=== PATIENT | female | born 1965 | race Two or more races ===

== ENCOUNTER 2017-08-09 07:23 | Outpatient (CLI) | payer OTHER ==
[~2017-08-09] VITALS: Ht 152.4 cm; Wt 70.8 kg
== END 2017-08-09 07:40 | disposition home or self-care (01) ==
LOC: OFIC 805 07:23
DX: H90.42 Sensorineural hearing loss, unilateral, left ear, with unrestricted hearing on the contralateral side (principal); J31.0 Chronic rhinitis; G35 Multiple sclerosis; M79.7 Fibromyalgia

== ENCOUNTER 2020-03-11 14:26 | Emergency (ER) | payer OTHER ==
[~2020-03-11] VITALS: Ht 154.9 cm; Wt 58.5 kg
[2020-03-11] MEDS ORDERED: AMBIEN CR12.5 MG (15:15)
[2020-03-11] MEDS ORDERED: ZANAFLEX2 M1 (15:16)
[2020-03-11] MEDS ORDERED: MAGNESIUM400 MG (15:16)
[2020-03-11] MEDS ORDERED: SINGULAIR10 MG (15:16)
[2020-03-11] MEDS ORDERED: NEURONTIN800 MG (15:16)
[2020-03-11] MEDS ORDERED: METFORMIN HCL500 M3 (15:17)
[2020-03-11] MEDS ORDERED: TAMS0.4C (15:17)
[2020-03-11] MEDS ORDERED: CLONAZEPAM1 MG (15:17)
[2020-03-11] MEDS ORDERED: BETHANECHOL CHL25 MG (15:17)
[2020-03-11] MEDS ORDERED: ZOLOFT100 MG (15:17)
[2020-03-11] MEDS ORDERED: STRIBILD TABLE1 EACH PO (19:25)
== END 2020-03-11 20:15 | disposition home or self-care (01) ==
LOC: ER 14:26
DX: T76.21XA Adult sexual abuse, suspected, initial encounter (principal); R42 Dizziness and giddiness; T65.93XA Toxic effect of unspecified substance, assault, initial encounter; F41.1 Generalized anxiety disorder; F06.8 Other specified mental disorders due to known physiological condition; Y92.810 Car as the place of occurrence of the external cause